=== PATIENT | male | born 1980 | race African-American/Black ===

== ENCOUNTER 2019-01-02 11:00 | Inpatient (IN) | payer OTHER ==
[2019-01-02 15:40] VITALS: BMI 21.9
--- NOTE | 2019-01-02 16:20 | HP ---
CIWA Score Nausea/Vomitin-No Nausea/No Vomiting Muscle Tremors: None Anxiety: 4-Mod. Anxious/Guarded Agitation: 4-Moderately Restless Paroxysmal Sweats: 2 Orientation: 2-Disoriented Date<2 days Tacttile Disturbances: 0-None Auditory Disturbances: 0-None Visual Disturbances: 0-None Headache: 3-Moderate CIWA-Ar Total Score: 15 - Admission Criteria OASAS Guidelines: Admission for Medically Managed Detox: Requires at least one of the followin. CIWA greater than 12 2. Seizures within the past 24 hours 3. Delirium tremens within the past 24 hours 4. Hallucinations within the past 24 hours 5. Acute intervention needed for co occurring medical disorder 6. Acute intervention needed for co occurring psychiatric disorder 7. Severe withdrawal that cannot be handled at a lower level of care (continued vomiting, continued diarrhea, abnormal vital signs) requiring intravenous medication and/or fluids 8. Admission ROS [facility] Allergies/Adverse Reactions: Allergies Allergy/AdvReac Type Severity Reaction Status Date / Time wheat Allergy Severe Difficulty Verified 01/02/19 15:19 Breathing iodine AdvReac Unknown Verified 01/02/19 15:19 History of Present Illness: pt here requesting detox from etoh use , reports first age of use 19 , heavily since ' , current daily use 1/5 liquor daily vodka, reports tremors if not drinking, reports chills/sweating, latest use 2 hours ago , currently intoxicated jessica 0.200 , current symptoms as above, reports blackouts, seizures , latest seizure 2017 . reports he starts drinking in the mornings " as soon as the store opens " , went out after registration at this facility and drank the alcohol that he had brought with him , then returned to the facility , current condition as above. pmhx : htn , pshx : denies psych : anxiety meds : did not bring, latest taken 2 d ago ( anti - HTN ) , psych meds not taken in > 5 d. tobacco : denies , reports using vaping denies illicits shx : lives w/ mother , unemployed Exam Limitations: Clinical Condition, Intoxication - Ebola screening Have you traveled outside of the country in the last 21 days: No (N) Have you had contact with anyone from an Ebola affected area: No Do you have a fever: No - Review of Systems Constitutional: Loss of Appetite EENT: reports: No Symptoms Reported Respiratory: reports: No Symptoms reported Cardiac: reports: No Symptoms Reported GI: reports: No Symptoms Reported : reports: No Symptoms Reported Musculoskeletal: reports: Back Pain (chronic) Integumentary: reports: No Symptoms Reported Neuro: reports: See HPI, Headache Endocrine: reports: No Symptoms Reported Psychiatric: reports: Orientated x3, Agitated Patient History - Smoking Cessation Smoking history: Former smoker Have you smoked in the past 12 months: No Hx Chewing Tobacco Use: No Initiated information on smoking cessation: No - Substances abused Alcohol Substance route: Oral Frequency: Daily Amount used: 1 liter of vodka Age of first use: 19 Date of last use: 01/02/19 Family Disease History - Family Disease History Family Disease History: Heart Disease: Father (htn , cva x 6 lives in [facility] ), Other: Father, Mother (etoh abuse ), Sister (1 , A & W ) Other Family History: no children Admission Physical Exam BHS - Vital Signs Vital Signs: Vital Signs - 24 hr 01/02/19 15:32 Temperature 98.5 F Pulse Rate 114 H Respiratory 19 Rate Blood Pressure 138/87 - Physical General Appearance: Yes: Intoxicated, Anxious HEENTM: Yes: EOMI, Normocephalic, Normal Voice Respiratory: Yes: Lungs Clear, Normal Breath Sounds, No Respiratory Distress, No Accessory Muscle Use Neck: Yes: No masses,lesions,Nodules, Trachea in good position Cardiology: Yes: Regular Rhythm, Regular Rate, S1, S2, Tachycardia Abdominal: Yes: Non Tender, Soft Back: Yes: Muscle Spasm (right rhomboids paraspinal) Musculoskeletal: Yes: full range of Motion, Gait Steady, Back pain Extremities: Yes: Normal Range of Motion, Non-Tender Neurological: Yes: Alert, Motor Strength 5/5 Integumentary: Yes: Warm - Diagnostic (1) Alcohol intoxication Current Visit: Yes Status: Acute Qualifiers: Complication of substance-induced condition: uncomplicated Qualified Code(s ): F10.920 - Alcohol use, unspecified with intoxication, uncomplicated Breathalyzer - Breathalyzer Breathalyzer: 0.200 Urine Drug Screen - Test Device Lot number: [id number] Expiration date: 08/29/20 - Control Is test valid?: Yes - Results Drug screen NEGATIVE: Yes Inpatient Rehab Admission - Rehab Decision to Admit Inpatient rehab admission?: No
[2019-01-02] MEDS ORDERED: ACETAMINOPHEN 325 MG TABLET (FP) PO PRN ×2 (16:37)
[2019-01-02] MEDS ORDERED: BISMUTH SUBSALICYLATE 524 MG/30 ML UD PO PRN (16:37)
[2019-01-02] MEDS ORDERED: IBUPROFEN 400 MG TABLET (FP) PO PRN (16:37)
[2019-01-02] MEDS ORDERED: NICOTINE POLACRILEX 2 MG GUM BUC PRN (16:37)
[2019-01-02] MEDS ORDERED: MAGNESIUM CITRATE 300 ML BOTTLE PO PRN (16:37)
[2019-01-02] MEDS ORDERED: MENTHOL/PHENOL 1 EACH UD MM PRN (16:37)
[2019-01-02] MEDS ORDERED: hydrOXYzine PAMOATE 25 MG CAPSULE (FP) PO PRN (16:37)
[2019-01-02] MEDS ORDERED: MAGNESIUM HYDROX 2400MG/30ML ORAL SUSPENSION 30 ML CUP PO PRN (16:37)
[2019-01-02] MEDS ORDERED: MAG HYDROX/AL HYDROX/SIMETH 30 ML UNIT-DOSE CUP PO PRN (16:37)
[2019-01-02] MEDS ORDERED: METOPROLOL TARTRATE 25 MG TABLET (FP) PO ONE (16:39)
[2019-01-02] MEDS ORDERED: chlordiazePOXIDE HCL 25 MG CAPSULE PO PRN (16:39)
[2019-01-02] MEDS: chlordiazePOXIDE HCL 25 MG CAPSULE PO SCH ×2 (18:34→22:19)
[2019-01-02] MEDS: THIAMINE HCL 100 MG TABLET (FP) PO SCH (22:19)
[2019-01-02] MEDS: MELATONIN 5 MG TABLETS PO PRN (22:55)
[2019-01-03] MEDS: chlordiazePOXIDE HCL 25 MG CAPSULE PO SCH ×4 (05:33→22:10)
[2019-01-03] MEDS: PRENATAL VITAMINS W/ FOLIC ACID TABLET (FP) PO SCH (10:09)
[2019-01-03 10:18] LABS: HEMATOCRIT 37.5 % (35.4-49); HEMOGLOBIN 12.5 GM/dL (11.7-16.9); MCH 30.7 pg (25.7-33.7); MCHC 33.4 g/dl (32.0-35.9); MEAN CELL VOLUME 91.8 fl (80-96); MEAN PLT VOLUME 7.8 fl (7.5-11.1); PLATELET COUNT 207 K/MM3 (134-434); RBC 4.08 M/mm3 (4.00-5.60); RDW 16.7 % (11.9-15.9); WHITE BLOOD COUNT 4.4 K/mm3 (4.0-10.0)
[2019-01-03 10:48] LABS: ALBUMIN 3.7 g/dl (3.4-5.0); BILIRUBIN,TOTAL 1.7 mg/dL (0.2-1); BLOOD UREA NITROGEN 8.6 mg/dL (7-18); CALCIUM 8.7 mg/dL (8.5-10.1); CREATININE 0.9 mg/dL (0.55-1.3); POTASSIUM 3.8 mmol/L (3.5-5.1); TOT PROT 7.3 g/dl (6.4-8.2)
--- NOTE | 2019-01-03 16:41 | PN ---
[facility] CIWA - CIWA Score Nausea/Vomitin-No Nausea/No Vomiting Muscle Tremors: 3 Anxiety: 4-Mod. Anxious/Guarded Agitation: 2 Paroxysmal Sweats: No Perspiration Orientation: 2-Disoriented Date<2 days Tacttile Disturbances: 2-Mild Itch/Numbness/Burn Auditory Disturbances: 0-None Visual Disturbances: 1-Very Mild Sensitivity Headache: 3-Moderate CIWA-Ar Total Score: 17 S Progress Note (SOAP) Subjective: Tremors, Headache, Interrupted Sleep, Anxious. Objective: PATIENT A & O X 1 (UNCERTAIN ABOUT CURRENT DAY / DATE AND ABOUT CURRENT LOCATION ). PATIENT OBSERVED AMBULATING ON UNIT UNASSISTED. IN NO ACUTE DISTRESS. 01/03/19 16:36 Vital Signs Temperature 98.5 F 01/03/19 13:42 Pulse Rate 81 01/03/19 16:00 Respiratory Rate 18 01/03/19 16:00 Blood Pressure 119/86 01/03/19 13:42 O2 Sat by Pulse Oximetry (%) Laboratory Tests 01/03/19 01/03/19 01/03/19 07:50 07:50 07:50 WBC 4.4 RBC 4.08 Hgb 12.5 Hct 37.5 MCV 91.8 MCH 30.7 MCHC 33.4 RDW 16.7 H Plt Count 207 MPV 7.8 Sodium 137 Potassium 3.8 Chloride 98 Carbon Dioxide 32 Anion Gap 7 L BUN 8.6 Creatinine 0.9 Est GFR (CKD-EPI)AfAm 126.02 Est GFR (CKD-EPI)NonAf 108.73 Random Glucose 76 Calcium 8.7 Total Bilirubin 1.7 H AST 177 H ALT 119 H Alkaline Phosphatase 95 Total Protein 7.3 Albumin 3.7 RPR Titer Nonreactive LABS NOTED. Assessment: 01/03/19 16:36 WITHDRAWAL SYMPTOMS. ELEVATED LIVER ENZYMES (AST, ALT). HYPERBILURUBINEMIA. 01/03/19 16:38 Plan: CONTINUE DETOX. HEPATIC FUNCTION PANEL TOMORROW AM FOR ELEVATED AST, ALT, AND TOTAL BILIRUBIN LEVELS NOTED ON DETOX ADMISSION LABORATORY ASSESSMENT. PATIENT REPORTS AN "ORANGE" COLOR TO HIS URINE OVER LAST DAY OR TWO. PATIENT DENIES ANY OTHER UNUSUAL URINARY COMPLAINTS (BURNING, PAIN, FREQUENCY, URGENCY, HESITANCY). UA ORDERED FOR FURTHER EVALUATION. RESULTS PENDING. PATIENT ADVISED TO INCREASE DAILY PO WATER INTAKE IN THE INTERIM. PATIENT VERBALIZED UNDERSTANDING OF RECOMMENDATION.
[2019-01-03] MEDS: MELATONIN 5 MG TABLETS PO PRN (22:10)
[2019-01-03] MEDS: THIAMINE HCL 100 MG TABLET (FP) PO SCH (22:10)
[2019-01-04] MEDS: chlordiazePOXIDE HCL 25 MG CAPSULE PO SCH ×2 (05:22→10:18)
[2019-01-04] MEDS: PRENATAL VITAMINS W/ FOLIC ACID TABLET (FP) PO SCH (10:18)
[2019-01-04 11:16] LABS: ALBUMIN 3.5 g/dl (3.4-5.0); BILIRUBIN,DIRECT 0.5 mg/dL (0.0-0.2); BILIRUBIN,TOTAL 1.4 mg/dL (0.2-1); TOT PROT 6.9 g/dl (6.4-8.2)
--- NOTE | 2019-01-04 11:54 | PN ---
[facility] CIWA - CIWA Score Nausea/Vomitin (Diarrhea.) Muscle Tremors: None Anxiety: 3 Agitation: 1-Slight > Activity Paroxysmal Sweats: 2 Orientation: 0-Oriented Tacttile Disturbances: 1-Very Mild Itch/Numbness Auditory Disturbances: 0-None Visual Disturbances: 1-Very Mild Sensitivity Headache: 0-None Present CIWA-Ar Total Score: 10 S Progress Note (SOAP) Subjective: Anxious, Sweating, Diarrhea. Objective: PATIENT A & O X 3, OBSERVED AMBULATING ON UNIT UNASSISTED. IN NO ACUTE DISTRESS. 01/04/19 11:51 Vital Signs Temperature 97.3 F L 01/04/19 09:40 Pulse Rate 64 01/04/19 09:40 Respiratory Rate 18 01/04/19 09:40 Blood Pressure 114/77 01/04/19 09:40 O2 Sat by Pulse Oximetry (%) Laboratory Tests 01/03/19 01/03/19 01/03/19 07:50 07:50 07:50 WBC 4.4 RBC 4.08 Hgb 12.5 Hct 37.5 MCV 91.8 MCH 30.7 MCHC 33.4 RDW 16.7 H Plt Count 207 MPV 7.8 Sodium 137 Potassium 3.8 Chloride 98 Carbon Dioxide 32 Anion Gap 7 L BUN 8.6 Creatinine 0.9 Est GFR (CKD-EPI)AfAm 126.02 Est GFR (CKD-EPI)NonAf 108.73 Random Glucose 76 Calcium 8.7 Total Bilirubin 1.7 H Direct Bilirubin AST 177 H ALT 119 H Alkaline Phosphatase 95 Total Protein 7.3 Albumin 3.7 RPR Titer Nonreactive 01/04/19 08:00 WBC RBC Hgb Hct MCV MCH MCHC RDW Plt Count MPV Sodium Potassium Chloride Carbon Dioxide Anion Gap BUN Creatinine Est GFR (CKD-EPI)AfAm Est GFR (CKD-EPI)NonAf Random Glucose Calcium Total Bilirubin 1.4 H Direct Bilirubin 0.5 H AST 161 H ALT 114 H Alkaline Phosphatase 96 Total Protein 6.9 Albumin 3.5 RPR Titer LABS NOTED. RESULTS OF HEPATIC FUNCTION PANEL NOTED. SLIGHT REDUCTIONS NOTED IN TOTAL BILIRUBIN, AST, AND IN ALT LEVELS. 01/04/19 11:53 Assessment: 01/04/19 11:51 WITHDRAWAL SYMPTOMS. ELEVATED LIVER ENZYMES. 01/04/19 11:53 Plan: CONTINUE DETOX. INCREASE DAILY PO WATER INTAKE. PRN PEPTO-BISMOL PO FOR DIARRHEA. DUE TO STILL ELEVATED LIVER ENZYMES AND TOTAL BILIRUBIN LEVEL NOTED ON HEPATIC FUNCTION PANEL, PATIENT'S CURRENT DETOX MEDICATION REGIMEN CHANGED FROM LIBRIUM TO ATIVAN DETOX REGIMEN.
[2019-01-04] MEDS ORDERED: LORazepam 0.5 MG TABLET PO PRN (11:55)
[2019-01-04] MEDS: LORazepam 0.5 MG TABLET PO SCH ×2 (18:13→23:03)
[2019-01-04] MEDS: THIAMINE HCL 100 MG TABLET (FP) PO SCH (23:03)
[2019-01-04] MEDS: MELATONIN 5 MG TABLETS PO PRN (23:04)
[2019-01-05] MEDS ORDERED: chlordiazePOXIDE HCL 10 MG CAPSULE PO PRN
[2019-01-05 02:54] LABS: PH,URINE 7.5 (5.0-8.0); URINE APPEARANCE CLEAR; URINE BILIRUBIN NEGATIVE (NEGATIVE); URINE COLOR YELLOW; URINE GLUCOSE (UA) NEGATIVE (NEGATIVE); URINE KETONE NEGATIVE (NEGATIVE); URINE LEUK ESTERASE NEGATIVE (NEGATIVE); URINE NITRITE NEGATIVE (NEGATIVE); URINE PROTEIN NEGATIVE (NEGATIVE)
[2019-01-05] MEDS ORDERED: chlordiazePOXIDE HCL 10 MG CAPSULE PO SCH (05:00)
[2019-01-05] MEDS: LORazepam 0.5 MG TABLET PO SCH ×4 (05:44→22:06)
[2019-01-05] MEDS: PRENATAL VITAMINS W/ FOLIC ACID TABLET (FP) PO SCH (10:18)
--- NOTE | 2019-01-05 10:59 | PN ---
[facility] CIWA - CIWA Score Nausea/Vomitin-No Nausea/No Vomiting Muscle Tremors: 2 Anxiety: 1-Mildly Anxious Agitation: 2 Paroxysmal Sweats: No Perspiration Orientation: 0-Oriented Tacttile Disturbances: 0-None Auditory Disturbances: 0-None Visual Disturbances: 0-None Headache: 0-None Present CIWA-Ar Total Score: 5 S Progress Note (SOAP) Subjective: feeling better today going to court tomorrow morning less tremor no anxiety alert Objective: 01/05/19 10:57 Vital Signs Temperature 96.7 F L 01/05/19 09:32 Pulse Rate 70 01/05/19 09:32 Respiratory Rate 18 01/05/19 09:32 Blood Pressure 114/83 01/05/19 09:32 O2 Sat by Pulse Oximetry (%) Laboratory Last Values WBC 4.4 K/mm3 (4.0-10.0) 01/03/19 07:50 RBC 4.08 M/mm3 (4.00-5.60) 01/03/19 07:50 Hgb 12.5 GM/dL (11.7-16.9) 01/03/19 07:50 Hct 37.5 % (35.4-49) 01/03/19 07:50 MCV 91.8 fl (80-96) 01/03/19 07:50 MCH 30.7 pg (25.7-33.7) 01/03/19 07:50 MCHC 33.4 g/dl (32.0-35.9) 01/03/19 07:50 RDW 16.7 % (11.9-15.9) H 01/03/19 07:50 Plt Count 207 K/MM3 (134-434) 01/03/19 07:50 MPV 7.8 fl (7.5-11.1) 01/03/19 07:50 Sodium 137 mmol/L (136-145) 01/03/19 07:50 Potassium 3.8 mmol/L (3.5-5.1) 01/03/19 07:50 Chloride 98 mmol/L (98-107) 01/03/19 07:50 Carbon Dioxide 32 mmol/L (21-32) 01/03/19 07:50 Anion Gap 7 MMOL/L (8-16) L 01/03/19 07:50 BUN 8.6 mg/dL (7-18) 01/03/19 07:50 Creatinine 0.9 mg/dL (0.55-1.3) 01/03/19 07:50 Est GFR (CKD-EPI)AfAm 126.02 01/03/19 07:50 Est GFR (CKD-EPI)NonAf 108.73 01/03/19 07:50 Random Glucose 76 mg/dL (74-106) 01/03/19 07:50 Calcium 8.7 mg/dL (8.5-10.1) 01/03/19 07:50 Total Bilirubin 1.4 mg/dL (0.2-1) H 01/04/19 08:00 Direct Bilirubin 0.5 mg/dL (0.0-0.2) H 01/04/19 08:00 AST 161 U/L (15-37) H 01/04/19 08:00 ALT 114 U/L (13-61) H 01/04/19 08:00 Alkaline Phosphatase 96 U/L (45-117) 01/04/19 08:00 Total Protein 6.9 g/dl (6.4-8.2) 01/04/19 08:00 Albumin 3.5 g/dl (3.4-5.0) 01/04/19 08:00 Urine Color Yellow 01/04/19 19:26 Urine Appearance Clear 01/04/19 19:26 Urine pH 7.5 (5.0-8.0) 01/04/19 19:26 Ur Specific [place] 1.008 (1.010-1.035) L 01/04/19 19:26 Urine Protein Negative (NEGATIVE) 01/04/19 19:26 Urine Glucose (UA) Negative (NEGATIVE) 01/04/19 19:26 Urine Ketones Negative (NEGATIVE) 01/04/19 19:26 Urine Blood Negative (NEGATIVE) 01/04/19 19:26 Urine Nitrite Negative (NEGATIVE) 01/04/19 19:26 Urine Bilirubin Negative (NEGATIVE) 01/04/19 19:26 Urine Urobilinogen 1.0 mg/dL (0.2-1.0) 01/04/19 19:26 Ur Leukocyte Esterase Negative (NEGATIVE) 01/04/19 19:26 RPR Titer Nonreactive (NONREACTIVE) 01/03/19 07:50 lab noted patient will follow up community health services discussed alcohol related ast elevation Assessment: 01/05/19 10:58 mild alcohol withdrawal sx Plan: continue alcohol detox
[2019-01-05] MEDS: THIAMINE HCL 100 MG TABLET (FP) PO SCH (22:06)
[2019-01-05] MEDS: MELATONIN 5 MG TABLETS PO PRN (22:07)
[2019-01-06] MEDS ORDERED: LORazepam 0.5 MG TABLET PO ONE (05:00)
[2019-01-06] MEDS ORDERED: chlordiazePOXIDE HCL 10 MG CAPSULE PO SCH (05:00)
[2019-01-06 06:36] VITALS: BP 108/73; PULSE 66; TEMP 97.1
--- NOTE | 2019-01-06 15:05 | DS ---
[facility] Detox Discharge Summary Admission Date: 01/02/19 Discharge Date: 01/06/19 - History Present History: Alcohol Dependence Additional Comments: 38 years old male admitted on 01/02/19 for alcohol withdrawal stabilization completed detox regimen aftercare community support approach patient left detox unit around 7 am senior writer dose not have the opportunity to assess nor evaluate the patient prior to discharge Pertinent Past History: based on nursing report that the patient discharge condition is good and willing to go to community support meeting - Physical Exam Results Vital Signs: Vital Signs Temperature 97.1 F L 01/06/19 06:36 Pulse Rate 66 01/06/19 06:36 Respiratory Rate 18 01/06/19 06:36 Blood Pressure 108/73 01/06/19 06:36 O2 Sat by Pulse Oximetry (%) Pertinent Admission Physical Exam Findings: alcohol withdrawal sx Laboratory Last Values WBC 4.4 K/mm3 (4.0-10.0) 01/03/19 07:50 RBC 4.08 M/mm3 (4.00-5.60) 01/03/19 07:50 Hgb 12.5 GM/dL (11.7-16.9) 01/03/19 07:50 Hct 37.5 % (35.4-49) 01/03/19 07:50 MCV 91.8 fl (80-96) 01/03/19 07:50 MCH 30.7 pg (25.7-33.7) 01/03/19 07:50 MCHC 33.4 g/dl (32.0-35.9) 01/03/19 07:50 RDW 16.7 % (11.9-15.9) H 01/03/19 07:50 Plt Count 207 K/MM3 (134-434) 01/03/19 07:50 MPV 7.8 fl (7.5-11.1) 01/03/19 07:50 Sodium 137 mmol/L (136-145) 01/03/19 07:50 Potassium 3.8 mmol/L (3.5-5.1) 01/03/19 07:50 Chloride 98 mmol/L (98-107) 01/03/19 07:50 Carbon Dioxide 32 mmol/L (21-32) 01/03/19 07:50 Anion Gap 7 MMOL/L (8-16) L 01/03/19 07:50 BUN 8.6 mg/dL (7-18) 01/03/19 07:50 Creatinine 0.9 mg/dL (0.55-1.3) 01/03/19 07:50 Est GFR (CKD-EPI)AfAm 126.02 01/03/19 07:50 Est GFR (CKD-EPI)NonAf 108.73 01/03/19 07:50 Random Glucose 76 mg/dL (74-106) 01/03/19 07:50 Calcium 8.7 mg/dL (8.5-10.1) 01/03/19 07:50 Total Bilirubin 1.4 mg/dL (0.2-1) H 01/04/19 08:00 Direct Bilirubin 0.5 mg/dL (0.0-0.2) H 01/04/19 08:00 AST 161 U/L (15-37) H 01/04/19 08:00 ALT 114 U/L (13-61) H 01/04/19 08:00 Alkaline Phosphatase 96 U/L (45-117) 01/04/19 08:00 Total Protein 6.9 g/dl (6.4-8.2) 01/04/19 08:00 Albumin 3.5 g/dl (3.4-5.0) 01/04/19 08:00 Urine Color Yellow 01/04/19 19:26 Urine Appearance Clear 01/04/19 19:26 Urine pH 7.5 (5.0-8.0) 01/04/19 19:26 Ur Specific [place] 1.008 (1.010-1.035) L 01/04/19 19:26 Urine Protein Negative (NEGATIVE) 01/04/19 19:26 Urine Glucose (UA) Negative (NEGATIVE) 01/04/19 19:26 Urine Ketones Negative (NEGATIVE) 01/04/19 19:26 Urine Blood Negative (NEGATIVE) 01/04/19 19:26 Urine Nitrite Negative (NEGATIVE) 01/04/19 19:26 Urine Bilirubin Negative (NEGATIVE) 01/04/19 19:26 Urine Urobilinogen 1.0 mg/dL (0.2-1.0) 01/04/19 19:26 Ur Leukocyte Esterase Negative (NEGATIVE) 01/04/19 19:26 RPR Titer Nonreactive (NONREACTIVE) 01/03/19 07:50 lab noted - Treatment Hospital Course: Detox Protocol Followed, Detoxed Safely, Responded well, Discharged Condition Good, Rehab Referral Accepted Patient has Accepted a Rehab Referral to: community support appraoch - Medication Discharge Medications: Ambulatory Orders Metoprolol Tartrate [Lopressor -] 25 mg PO BID #30 tablet 01/05/19 - Diagnosis (1) Alcohol dependence with uncomplicated withdrawal Status: Acute (2) Hypertension Status: Chronic Qualifiers: Hypertension type: essential hypertension Qualified Code(s): I10 - Essential (primary) hypertension - AMA Did Patient Leave Against Medical Advice: No
[2019-01-07] MEDS ORDERED: chlordiazePOXIDE HCL 10 MG CAPSULE PO ONE (05:00)
== END 2019-01-06 06:53 | disposition home or self-care (01) | DRG 775 ==
LOC: YASAS 11:00 → Y3N 17:33
PROVIDERS: ADMIT Surgery; ATTEND Surgery
PROC: HZ2ZZZZ Detoxification Services for Substance Abuse Treatment (ICD-10-PCS; principal; 2019-01-02)
DX: F10.230 Alcohol dependence with withdrawal, uncomplicated (principal); F41.9 Anxiety disorder, unspecified; I10 Essential (primary) hypertension; E80.6 Other disorders of bilirubin metabolism; R94.5 Abnormal results of liver function studies
CPT/HCPCS: 36415; 80053; 80076; 81003; 85027; 86593

== ENCOUNTER 2019-06-13 23:47 | Inpatient (IN) | payer OTHER ==
[2019-06-14 00:14] VITALS: BMI 21.7
--- NOTE | 2019-06-14 00:23 | HP ---
CIWA Score Nausea/Vomitin-No Nausea/No Vomiting Muscle Tremors: 4-Moderate,w/Arms Extend Anxiety: 4-Mod. Anxious/Guarded Agitation: 4-Moderately Restless Paroxysmal Sweats: 4-Forehead w/Sweat Beads Orientation: 1-Uncertain about Date Tacttile Disturbances: 0-None Auditory Disturbances: 0-None Visual Disturbances: 0-None Headache: 2-Mild CIWA-Ar Total Score: 19 - Admission Criteria OASAS Guidelines: Admission for Medically Managed Detox: Requires at least one of the followin. CIWA greater than 12 2. Seizures within the past 24 hours 3. Delirium tremens within the past 24 hours 4. Hallucinations within the past 24 hours 5. Acute intervention needed for co occurring medical disorder 6. Acute intervention needed for co occurring psychiatric disorder 7. Severe withdrawal that cannot be handled at a lower level of care (continued vomiting, continued diarrhea, abnormal vital signs) requiring intravenous medication and/or fluids 8. Patient presents the following: CIWA greater than 12 Admission Criteria Met: Admission criteria met Admitting History and Physical - Smoking History Smoking history: Former smoker Have you smoked in the past 12 months: No Admission ROS S - HPI Chief Complaint: seeking alcohol detox Allergies/Adverse Reactions: Allergies Allergy/AdvReac Type Severity Reaction Status Date / Time iodine AdvReac Unknown Verified 06/14/19 00:03 History of Present Illness: HERE FOR ALCOHOL DETOX. CLIENT IS SELF REFERRED. KNOWN TO THE PROGRAM. LAST HERE 12/2018. CLIENT REPORTS RELAPSING 3 DAYS AGO. PRESENTS WITH WITHDRAWAL SX' S. 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 HX OF SZ NOT RELATED TO WITHDRAWALS. + BLACK OUTS. MOST RECENT CLEAN TIME PAST 4 MONTHS. LIVES ALONE, UNEMPLOYED, PROBATION Exam Limitations: No Limitations - Ebola screening Have you traveled outside of the country in the last 21 days: No (N) Have you had contact with anyone from an Ebola affected area: No Do you have a fever: No - Review of Systems Constitutional: Chills, Loss of Appetite, Night Sweats, Changes in sleep EENT: reports: No Symptoms Reported Respiratory: reports: No Symptoms reported Cardiac: reports: No Symptoms Reported GI: reports: Nausea, Poor Appetite, Poor Fluid Intake : reports: No Symptoms Reported Musculoskeletal: reports: Back Pain (CHRONIC) Integumentary: reports: Sweating Neuro: reports: Headache, Seizure, Tremors Endocrine: reports: No Symptoms Reported Hematology: reports: Anemia (HX/O) Psychiatric: reports: Orientated x3, Anxious, Depressed (DENIES SI) Other Systems: Reviewed and Negative Patient History - Patient Medical History Hx Anemia: Yes (HX/O) Hx Asthma: No Hx Chronic Obstructive Pulmonary Disease (COPD): No Hx Cancer: No Hx Cardiac Disorders: No Hx Congestive Heart Failure: No Hx Hypertension: Yes Hx Hypercholesterolemia: No Hx Pacemaker: No HX Cerebrovascular Accident: Yes (HX) Hx Seizures: Yes (NOT COMPLIANT) Hx Dementia: No Hx Diabetes: No Hx Gastrointestinal Disorders: No Hx Liver Disease: No Hx Genitourinary Disorders: No Hx Sexually Transmitted Disorders: No Hx Renal Disease (ESRD): No Hx Thyroid Disease: No Hx Human Immunodeficiency Virus (HIV): No Hx Hepatitis C: No Hx Depression: No Hx Suicide Attempt: No Hx Bipolar Disorder: No Hx Schizophrenia: No Other Medical History: ANXIETY - Patient Surgical History Past Surgical History: No Hx Neurologic Surgery: No Hx Cataract Extraction: No Hx Cardiac Surgery: No Hx Lung Surgery: No Hx Breast Surgery: No Hx Breast Biopsy: No Hx Abdominal Surgery: No Hx Appendectomy: No Hx Cholecystectomy: No Hx Genitourinary Surgery: No Hx Section: No Hx Orthopedic Surgery: No Anesthesia Reaction: No - PPD History Previous Implant?: Yes Documented Results: Negative w/o proof Implanted On Prior [facility] Admission?: No PPD to be Administered?: Yes - Smoking Cessation Smoking history: Current every day smoker (VAPOR) Have you smoked in the past 12 months: No Aproximately how many cigarettes per day: 10 (VAPES ALL DAY) Cigars Per Day: 0 Hx Chewing Tobacco Use: No Initiated information on smoking cessation: Yes 'Breaking Loose' booklet given: 06/14/19 - Substance & Tx. History Hx Alcohol Use: Yes Hx Substance Use: Yes Substance Use Type: Alcohol Hx Substance Use Treatment: Yes ([facility]) - Substances abused Alcohol Substance route: Oral Frequency: Daily Amount used: 1 liter of vodka Age of first use: 19 Date of last use: 06/13/19 (FIFTH) Admission Physical Exam BHS - Vital Signs Vital Signs: Vital Signs - 24 hr 06/14/19 00:08 Temperature 99.1 F Pulse Rate 111 H Respiratory 20 Rate Blood Pressure 127/87 - Physical General Appearance: Yes: Moderate Distress, Alcohol on Breath, Tremorous, Sweating, Anxious HEENTM: Yes: EOMI, Normocephalic, Normal Voice, MAYELA, Pharynx Normal Respiratory: Yes: Chest Non-Tender, Lungs Clear, Normal Breath Sounds, No Respiratory Distress, No Accessory Muscle Use Neck: Yes: No masses,lesions,Nodules, Supple, Trachea in good position Breast: Yes: Breasts Symetrical Cardiology: Yes: Regular Rhythm, Regular Rate, S1, S2 Abdominal: Yes: Normal Bowel Sounds, Non Tender, Soft Genitourinary: Yes: Within Normal Limits Back: Yes: Normal Inspection Musculoskeletal: Yes: full range of Motion, Gait Steady, Back pain (C/O-CHRONIC) Extremities: Yes: Normal Capillary Refill, Normal Range of Motion, Non-Tender, Tremors Neurological: Yes: Fully Oriented, Alert, Motor Strength 5/5, Depressed Affect Integumentary: Yes: Warm, Clammy Lymphatic: Yes: Within Normal Limits - Diagnostic (1) Depressed affect Current Visit: Yes Status: Acute (2) Anxiety Current Visit: Yes Status: Chronic (3) At risk for dehydration due to poor fluid intake Current Visit: Yes Status: Acute (4) Alcohol dependence with uncomplicated withdrawal Current Visit: Yes Status: Acute (5) Hypertension Current Visit: Yes Status: Chronic Qualifiers: Hypertension type: essential hypertension Qualified Code(s): I10 - Essential (primary) hypertension (6) Non compliance w medication regimen Current Visit: Yes Status: Chronic Comment: DOES NOT TAKE SEIZURE MEDS Cleared for Admission S - Detox or Rehab [facility] Level of Care: Medically Managed (ATIVAN) Detox Regimen/Protocol: Not Applicable Claeared for Rehab Admission: No Breathalyzer - Breathalyzer Breathalyzer: 0.219 Urine Drug Screen - Test Device Lot number: [id number] Expiration date: 08/29/20 - Control Is test valid?: Yes - Results Drug screen NEGATIVE: Yes Inpatient Rehab Admission - Rehab Decision to Admit Inpatient rehab admission?: No
[2019-06-14] MEDS ORDERED: P-EPHED 60MG/TRIPROLIDI 2.5MG TABLET PO PRN (00:29)
[2019-06-14] MEDS ORDERED: ONDANSETRON *ODT* 4 MG TABLET SL PRN (00:29)
[2019-06-14] MEDS ORDERED: METHOCARBAMOL 500 MG TABLET PO PRN (00:29)
[2019-06-14] MEDS ORDERED: MAGNESIUM CITRATE 300 ML BOTTLE PO PRN (00:29)
[2019-06-14] MEDS ORDERED: LORazepam 1 MG TABLET PO PRN (00:29)
[2019-06-14] MEDS ORDERED: MAGNESIUM HYDROX 2400MG/30ML ORAL SUSPENSION 30 ML CUP PO PRN (00:29)
[2019-06-14] MEDS ORDERED: MENTHOL/PHENOL 1 EACH UD MM PRN (00:29)
[2019-06-14] MEDS ORDERED: guaiFENesin 200 MG/10 ML 10 ML UNIT-DOSE CUPS PO PRN (00:29)
[2019-06-14] MEDS ORDERED: DICYCLOMINE HCL 10 MG CAPSULE PO PRN (00:29)
[2019-06-14] MEDS ORDERED: MAG HYDROX/AL HYDROX/SIMETH 30 ML UNIT-DOSE CUP PO PRN (00:29)
[2019-06-14] MEDS ORDERED: ACETAMINOPHEN 325 MG TABLET (FP) PO PRN ×2 (00:29)
[2019-06-14] MEDS ORDERED: BISMUTH SUBSALICYLATE 524 MG/30 ML UD PO PRN (00:29)
[2019-06-14] MEDS ORDERED: NICOTINE POLACRILEX 2 MG GUM BUC PRN (00:29)
[2019-06-14] MEDS ORDERED: IBUPROFEN 400 MG TABLET (FP) PO PRN (00:29)
[2019-06-14] MEDS ORDERED: hydrOXYzine PAMOATE 25 MG CAPSULE (FP) PO PRN (00:29)
[2019-06-14] MEDS: LORazepam 2 MG TABLET PO SCH ×4 (05:06→22:34)
--- NOTE | 2019-06-14 10:23 | EKG ---
Test Reason : Blood Pressure : / mmHG Vent. Rate : 101 BPM Atrial Rate : 101 BPM P-R Int : 142 ms QRS Dur : 088 ms QT Int : 434 ms P-R-T Axes : 050 089 035 degrees QTc Int : 562 ms SINUS TACHYCARDIA PROLONGED QT ABNORMAL ECG NO PREVIOUS ECGS AVAILABLE Confirmed by YOLANDA SANCHEZ, DORON ([id number]) on 06/14/2019 10:22:44 AM Referred By: Shadi Medina Confirmed By:DORON GUERRERO MD
[2019-06-14 10:35] LABS: HEMATOCRIT 45.7 % (35.4-49); HEMOGLOBIN 15.4 GM/dL (11.7-16.9); MCH 30.1 pg (25.7-33.7); MCHC 33.7 g/dl (32.0-35.9); MEAN CELL VOLUME 89.3 fl (80-96); PLATELET COUNT 303 K/MM3 (134-434); RBC 5.12 M/mm3 (4.00-5.60); RDW 14.2 % (11.9-15.9); WHITE BLOOD COUNT 6.2 K/mm3 (4.0-10.0)
[2019-06-14 10:42] LABS: BILIRUBIN,TOTAL 1.2 mg/dL (0.2-1); BLOOD UREA NITROGEN 14.3 mg/dL (7-18); CALCIUM 9.2 mg/dL (8.5-10.1); POTASSIUM 3.7 mmol/L (3.5-5.1); TOT PROT 7.8 g/dl (6.4-8.2)
[2019-06-14] MEDS: METOPROLOL TARTRATE 25 MG TABLET (FP) PO SCH ×2 (11:51→22:34)
[2019-06-14] MEDS: PRENATAL VITAMINS W/ FOLIC ACID TABLET (FP) PO SCH (11:53)
--- NOTE | 2019-06-14 13:46 | PN ---
S CIWA - CIWA Score Nausea/Vomitin Muscle Tremors: 3 Anxiety: 3 Agitation: 2 Paroxysmal Sweats: 1-Minimal Palms Moist Orientation: 0-Oriented Tacttile Disturbances: 0-None Auditory Disturbances: 0-None Visual Disturbances: 0-None Headache: 1-Very Mild CIWA-Ar Total Score: 12 BHS Progress Note (SOAP) Subjective: pt admitted for alcohol detox last pepe/early today. Pt states doing OK. O: Vital Signs - 24 hr 06/14/19 06/14/19 06/14/19 00:08 01:02 01:45 Temperature 99.1 F 99.1 F 99.0 F Pulse Rate 111 H 111 H 118 H Respiratory 20 20 20 Rate Blood Pressure 127/87 127/87 132/74 06/14/19 06/14/19 06/14/19 03:56 05:50 06:25 Temperature 97.7 F Pulse Rate 100 H 100 H Respiratory 18 18 18 Rate Blood Pressure 127/78 06/14/19 09:32 Temperature 98.4 F Pulse Rate 106 H Respiratory 18 Rate Blood Pressure 136/89 Laboratory Tests 06/14/19 06/14/19 06/14/19 08:10 08:10 08:10 WBC 6.2 RBC 5.12 Hgb 15.4 Hct 45.7 D MCV 89.3 MCH 30.1 MCHC 33.7 RDW 14.2 D Plt Count 303 D MPV 8.0 Sodium 140 Potassium 3.7 Chloride 100 Carbon Dioxide 28 Anion Gap 12 BUN 14.3 Creatinine 1.0 Est GFR (CKD-EPI)AfAm 110.94 Est GFR (CKD-EPI)NonAf 95.72 Random Glucose 84 Calcium 9.2 Total Bilirubin 1.2 H AST 102 H ALT 77 H Alkaline Phosphatase 78 Total Protein 7.8 Albumin 4.0 RPR Titer Nonreactive increased liver enzymes a/p: aud- continue detox protocol increased liver enzymes monitor
[2019-06-14] MEDS: THIAMINE HCL 100 MG TABLET (FP) PO SCH (22:34)
[2019-06-14] MEDS: MELATONIN 5 MG TABLETS PO PRN (22:34)
[2019-06-15] MEDS: LORazepam 1 MG TABLET PO SCH ×4 (05:56→22:16)
[2019-06-15] MEDS: METOPROLOL TARTRATE 25 MG TABLET (FP) PO SCH ×2 (10:30→22:15)
[2019-06-15] MEDS: PRENATAL VITAMINS W/ FOLIC ACID TABLET (FP) PO SCH (10:30)
[2019-06-15 11:27] LABS: EPI CELLS 3.1 /HPF (0-5/HPF); HYALINE CASTS 17 /lpf (0-8); PH,URINE 6.5 (5.0-8.0); URINE APPEARANCE TURBID; URINE BACTERIA 7.7 /hpf (NEGATIVE); URINE BILIRUBIN 1+ (NEGATIVE); URINE COLOR ORANGE; URINE GLUCOSE (UA) NEGATIVE (NEGATIVE); URINE KETONE 1+ (NEGATIVE); URINE LEUK ESTERASE TRACE (NEGATIVE); URINE NITRITE POSITIVE (NEGATIVE); URINE PROTEIN TRACE (NEGATIVE); URINE RBC 4 /hpf (0-4); URINE WBC 3 /hpf (0-5)
[2019-06-15 12:28] LABS: URINE CRYSTALS POSITIVE /hpf
--- NOTE | 2019-06-15 12:56 | PN ---
[facility] CIWA - CIWA Score Nausea/Vomitin-Mild Nausea/No Vomiting Muscle Tremors: 3 Anxiety: 4-Mod. Anxious/Guarded Agitation: 3 Paroxysmal Sweats: 3 Orientation: 0-Oriented Tacttile Disturbances: 0-None Auditory Disturbances: 0-None Visual Disturbances: 0-None Headache: 0-None Present CIWA-Ar Total Score: 14 S Progress Note (SOAP) Subjective: Tremor, sweating Objective: 06/15/19 12:49 Last Vital Signs Temp Pulse Resp BP Pulse Ox 97.5 F L 80 16 124/87 06/15/19 09:18 06/15/19 09:18 06/15/19 09:18 06/15/19 09:18 Noted in chart, signed EKG on 06/14/19: sinus tachycardia at 101, QTc at 562 ms Laboratory Tests 06/14/19 06/14/19 06/14/19 08:10 08:10 08:10 WBC 6.2 RBC 5.12 Hgb 15.4 Hct 45.7 D MCV 89.3 MCH 30.1 MCHC 33.7 RDW 14.2 D Plt Count 303 D MPV 8.0 Sodium 140 Potassium 3.7 Chloride 100 Carbon Dioxide 28 Anion Gap 12 BUN 14.3 Creatinine 1.0 Est GFR (CKD-EPI)AfAm 110.94 Est GFR (CKD-EPI)NonAf 95.72 Random Glucose 84 Calcium 9.2 Total Bilirubin 1.2 H AST 102 H ALT 77 H Alkaline Phosphatase 78 Total Protein 7.8 Albumin 4.0 Urine Color Urine Appearance Urine pH Ur Specific [place] Urine Protein Urine Glucose (UA) Urine Ketones Urine Blood Urine Nitrite Urine Bilirubin Urine Urobilinogen Ur Leukocyte Esterase Urine WBC (Auto) Urine RBC (Auto) Urine Casts (Auto) U Pathogenic Cast Auto U Epithel Cells (Auto) Urine Crystals (Auto) Urine Bacteria (Auto) RPR Titer Nonreactive 06/15/19 08:20 WBC RBC Hgb Hct MCV MCH MCHC RDW Plt Count MPV Sodium Potassium Chloride Carbon Dioxide Anion Gap BUN Creatinine Est GFR (CKD-EPI)AfAm Est GFR (CKD-EPI)NonAf Random Glucose Calcium Total Bilirubin AST ALT Alkaline Phosphatase Total Protein Albumin Urine Color [place] Urine Appearance Turbid Urine pH 6.5 Ur Specific [place] 1.025 Urine Protein Trace Urine Glucose (UA) Negative Urine Ketones 1+ H Urine Blood Negative Urine Nitrite Positive H Urine Bilirubin 1+ H Urine Urobilinogen 1.0 Ur Leukocyte Esterase Trace Urine WBC (Auto) 3 Urine RBC (Auto) 4 Urine Casts (Auto) 17 U Pathogenic Cast Auto Negative U Epithel Cells (Auto) 3.1 Urine Crystals (Auto) Positive Urine Bacteria (Auto) 7.7 RPR Titer Labs reviewed: noted with; elevated total bilirubin, elevated AST/ALT, abnormal UA Assessment: 06/15/19 12:51 Withdrawal sxs Noted with elevated total bilirubin, elevated AST/ALT, abnormal UA Plan: Continue detox Encouraged PO water intake Elevated total bilirubin: most likely due to alcoholism, asymptomatic, repeat total bilirubin level Transaminitis: most likely due to alcoholism, repeat AST/ALT (already ordered for repeat hepatic function panel in AM) Acute UTI noted: send urine cx stat, repeat UA, encouraged PO water intake, plan is to start ciprofloxacin 500mg PO q12hr x 10 days but will hold at this time due to prolonged QTc of 562ms on EKG; can initiate cipro if prolonged QTc improved significantly, follow up with PCP for further evaluation post discharge Prolonged QTc on EKG: asymptomatic, repeat EKG today
--- NOTE | 2019-06-15 14:16 | CONSULT ---
[facility] Psychiatric Consult - Data Date of interview: 06/15/19 Admission source: [facility] Identifying data: Patient is a 38 year old single black male, without children, unemployed, domiciled, and is supported by food stamps. This is one of multiple admissions for patient. Patient admitted to for alcohol dependence. Substance Abuse History: Smoking Cessation. Smoking history: Current every day smoker (VAPOR). Have you smoked in the past 12 months: No. Aproximately how many cigarettes per day: 10 (VAPES ALL DAY). Cigars Per Day: 0. Hx Chewing Tobacco Use: No. Initiated information on smoking cessation: Yes. 'Breaking Loose' booklet given: 06/14/19. - Substance & Tx. History. Hx Alcohol Use: Yes. Hx Substance Use: Yes. Substance Use Type: Alcohol. Hx Substance Use Treatment: Yes ([facility] - Substances abused. Alcohol. Substance route: Oral. Frequency: Daily. Amount used: 1 liter of vodka. Age of first use: 19. Date of last use: 06/13/19 (FIFTH) Medical History: Anemia, Seizures Psychiatric History: Patient denies history of psychiatric hospitalizations, outpatient care, and suicide attempt. Reports past history of seeing a psychiatrist when admitted to detox/rehab settings, most recently at [facility] in March of 2019. He was diagnosed with anxiety due to alcohol withdrawal and given antianxiety medications. At present patient reports feeling anxious. Physical/Sexual Abuse/Trauma History: denies. Mental Status Exam - Mental Status Exam Alert and Oriented to: Time, Place, Person Cognitive Function: Good Patient Appearance: Well Groomed Mood: Euthymic Affect: Appropriate Patient Behavior: Appropriate, Cooperative Speech Pattern: Appropriate Voice Loudness: Normal Thought Process: Goal Oriented Thought Disorder: Not Present Hallucinations: Denies Suicidal Ideation: Denies Homicidal Ideation: Denies Insight/Judgement: Poor Sleep: Poorly Appetite: Fair Muscle strength/Tone: Normal Gait/Station: Normal Psychiatric Findings - Problem List ([place] 1, 2,3) (1) Alcohol-induced anxiety disorder Status: Acute (2) Alcohol dependence with uncomplicated withdrawal Status: Chronic - Initial Treatment Plan Initial Treatment Plan: Psychoeducation provided. Rehab in progress. Medications reviewed with patient. Patient informed that vistaril 50mg q6h is ordered for anxiety.
[2019-06-15] MEDS ORDERED: CIPROFLOXACIN 500 MG TABLET (RESTRICTED TO ID) PO SCH (22:00)
[2019-06-15] MEDS: MELATONIN 5 MG TABLETS PO PRN (22:16)
[2019-06-15] MEDS: THIAMINE HCL 100 MG TABLET (FP) PO SCH (22:16)
[2019-06-16] MEDS ORDERED: LORazepam 0.5 MG TABLET PO PRN
[2019-06-16] MEDS ORDERED: LORazepam 0.5 MG TABLET PO SCH (05:00)
[2019-06-16 06:12] VITALS: TEMP 97.7
--- NOTE | 2019-06-16 09:03 | DS ---
[facility] Detox Discharge Summary Admission Date: 06/14/19 Discharge Date: 06/16/19 - History Present History: Alcohol Dependence - Physical Exam Results Vital Signs: Vital Signs Temperature 97.7 F 06/16/19 06:00 Pulse Rate 64 06/16/19 06:00 Respiratory Rate 18 06/16/19 06:00 Blood Pressure 115/73 06/16/19 06:00 O2 Sat by Pulse Oximetry (%) Pertinent Admission Physical Exam Findings: Vital Signs Temperature 97.7 F 06/16/19 06:00 Pulse Rate 64 06/16/19 06:00 Respiratory Rate 18 06/16/19 06:00 Blood Pressure 115/73 06/16/19 06:00 O2 Sat by Pulse Oximetry (%) Laboratory Tests 06/14/19 06/14/19 06/14/19 08:10 08:10 08:10 WBC 6.2 RBC 5.12 Hgb 15.4 Hct 45.7 D MCV 89.3 MCH 30.1 MCHC 33.7 RDW 14.2 D Plt Count 303 D MPV 8.0 Sodium 140 Potassium 3.7 Chloride 100 Carbon Dioxide 28 Anion Gap 12 BUN 14.3 Creatinine 1.0 Est GFR (CKD-EPI)AfAm 110.94 Est GFR (CKD-EPI)NonAf 95.72 Random Glucose 84 Calcium 9.2 Total Bilirubin 1.2 H AST 102 H ALT 77 H Alkaline Phosphatase 78 Total Protein 7.8 Albumin 4.0 Urine Color Urine Appearance Urine pH Ur Specific [place] Urine Protein Urine Glucose (UA) Urine Ketones Urine Blood Urine Nitrite Urine Bilirubin Urine Urobilinogen Ur Leukocyte Esterase Urine WBC (Auto) Urine RBC (Auto) Urine Casts (Auto) U Pathogenic Cast Auto U Epithel Cells (Auto) Urine Crystals (Auto) Urine Bacteria (Auto) RPR Titer Nonreactive 06/15/19 08:20 WBC RBC Hgb Hct MCV MCH MCHC RDW Plt Count MPV Sodium Potassium Chloride Carbon Dioxide Anion Gap BUN Creatinine Est GFR (CKD-EPI)AfAm Est GFR (CKD-EPI)NonAf Random Glucose Calcium Total Bilirubin AST ALT Alkaline Phosphatase Total Protein Albumin Urine Color [place] Urine Appearance Turbid Urine pH 6.5 Ur Specific [place] 1.025 Urine Protein Trace Urine Glucose (UA) Negative Urine Ketones 1+ H Urine Blood Negative Urine Nitrite Positive H Urine Bilirubin 1+ H Urine Urobilinogen 1.0 Ur Leukocyte Esterase Trace Urine WBC (Auto) 3 Urine RBC (Auto) 4 Urine Casts (Auto) 17 U Pathogenic Cast Auto Negative U Epithel Cells (Auto) 3.1 Urine Crystals (Auto) Positive Urine Bacteria (Auto) 7.7 RPR Titer aaox3 ambulating no acute distress - Treatment Hospital Course: Detox Protocol Followed, Detoxed Safely, Responded well, Discharged Condition Good, Rehab Referral Accepted Patient has Accepted a Rehab Referral to: pt declined rehab - Medication Discharge Medications: Ambulatory Orders Metoprolol Tartrate [Lopressor -] 25 mg PO BID #30 tablet 01/05/19 hydrOXYzine PAMOATE [Vistaril -] 50 mg PO TID PRN 06/14/19 - Diagnosis (1) Alcohol dependence with uncomplicated withdrawal Current Visit: Yes Status: Chronic (2) Alcohol-induced anxiety disorder Current Visit: Yes Status: Acute (3) Depressed affect Current Visit: Yes Status: Acute (4) Anxiety Current Visit: Yes Status: Chronic (5) Hypertension Current Visit: Yes Status: Chronic Qualifiers: Hypertension type: essential hypertension Qualified Code(s): I10 - Essential (primary) hypertension (6) Non compliance w medication regimen Current Visit: Yes Status: Chronic (7) Elevated alanine aminotransferase (ALT) level Current Visit: Yes Status: Acute (8) Elevated aspartate aminotransferase level Current Visit: Yes Status: Acute (9) Hyperbilirubinemia Current Visit: Yes Status: Acute - AMA Did Patient Leave Against Medical Advice: No
[2019-06-16 09:25] VITALS: BP 135/88; PULSE 66
[2019-06-16 12:48] LABS: ALBUMIN 3.6 g/dl (3.4-5.0); BILIRUBIN,DIRECT 0.3 mg/dL (0.0-0.2); BILIRUBIN,TOTAL 1.2 mg/dL (0.2-1); TOT PROT 7.3 g/dl (6.4-8.2)
--- NOTE | 2019-06-16 14:54 | EKG ---
Test Reason : Blood Pressure : / mmHG Vent. Rate : 072 BPM Atrial Rate : 072 BPM P-R Int : 170 ms QRS Dur : 094 ms QT Int : 418 ms P-R-T Axes : 030 073 027 degrees QTc Int : 457 ms NORMAL SINUS RHYTHM NORMAL ECG WHEN COMPARED WITH ECG OF 14-JUN-2019 02:08, VENT. RATE HAS DECREASED Confirmed by OSITO SIDDIQI MD [id number]) on 06/16/2019 2:53:51 PM Referred By: Shadi Medina Confirmed By:OSITO SIDDIQI MD
[2019-06-17] MEDS ORDERED: LORazepam 0.5 MG TABLET PO ONE (05:00)
== END 2019-06-16 09:52 | disposition home or self-care (01) | DRG 775 ==
LOC: YASAS 23:47 → Y6N 06-14 00:53
PROVIDERS: ADMIT Allergy & Immunology; ATTEND Allergy & Immunology
PROC: HZ2ZZZZ Detoxification Services for Substance Abuse Treatment (ICD-10-PCS; principal; 2019-06-14)
DX: F10.230 Alcohol dependence with withdrawal, uncomplicated (principal); F10.280 Alcohol dependence with alcohol-induced anxiety disorder; F17.210 Nicotine dependence, cigarettes, uncomplicated; F41.9 Anxiety disorder, unspecified; F32.9 Major depressive disorder, single episode, unspecified; I10 Essential (primary) hypertension; R63.8 Other symptoms and signs concerning food and fluid intake; R74.0 Nonspecific elevation of levels of transaminase and lactic acid dehydrogenase [LDH]; E80.6 Other disorders of bilirubin metabolism; R82.90 Unspecified abnormal findings in urine; G40.909 Epilepsy, unspecified, not intractable, without status epilepticus; R00.0 Tachycardia, unspecified; Z91.14 Patient's other noncompliance with medication regimen; Z86.73 Personal history of transient ischemic attack (TIA), and cerebral infarction without residual deficits; Z91.048 Other nonmedicinal substance allergy status; Z56.0 Unemployment, unspecified
CPT/HCPCS: 36415; 80053; 80076; 81003; 85027; 86593; 93005; 93010